=== PATIENT | female | born 1940 | race Caucasian/White ===

== ENCOUNTER 2017-01-03 14:40 | Inpatient (IN) | payer MEDICARE ==
[~2017-01-03] VITALS: Ht 160 cm; Wt 81.4 kg
[~2017-01-03 14:40] MED LIST: ASPIRIN81 MG PO; GLU10 PO; HUM7525 SQ; HUMALOG100 U/ML SC; LEVAQUIN250 MG PO; LEVOFLOXACIN500 M1 PO; MAC100 PO; METFORMIN HCL1000 MG PO; METFORMIN1000 M1 PO; METOPROLOL SUCC50 M1 PO; SIMVASTATIN40 M1 PO; TOPROL XL25 MG PO; ZESTRIL5 MG PO
[2017-01-03] MEDS ORDERED: VITAMIN B12 (14:58)
[2017-01-03] MEDS ORDERED: LOPRESSOR50 M1 PO (14:59)
[2017-01-03] MEDS ORDERED: NITROSTAT0.4 MG SL (15:00)
[2017-01-03 17:23] LABS: BASOPHIL % 0.3 % (0-2)
[2017-01-03 17:29] LABS: CALCIUM 8.9 mg/dL (8.5-10.1); CHLORIDE SERUM 107 mmol/L (98-107); CREATININE SERUM 1.1 mg/dL (0.6-1.0); GLUCOSE SERUM 181 mg/dL (74-106); PLATELET COUNT 119 x10^3mcL (130-400); POTASSIUM SERUM 4.4 mmol/L (3.5-5.1); SODIUM SERUM 140 mmol/L (136-145)
[2017-01-03 17:39] LABS: ALKALINE PHOSPHATASE 97 U/L (46-116); ALT/SGPT 18 U/L (14-59); AST/SGOT 21 U/L (15-37); BILIRUBIN TOTAL 0.46 mg/dL (0.20-1.00); CHOLESTEROL 141 mg/dL (<200); HDL CHOLESTEROL 51 mg/dL (40-60); PHOSPHOROUS 2.5 mg/dL (2.5-4.9); TOTAL PROTEIN, SERUM 7.9 g/dL (6.4-8.2); URIC ACID 4.4 mg/dL (2.6-6.0)
[2017-01-03 17:40] LABS: ALBUMIN 3.3 g/dL (3.4-5.0)
[2017-01-03 20:05] LABS: T3 TOTAL 0.99 ng/mL
[2017-01-03 20:11] LABS: FREE T4 1.07 ng/dL (0.76-1.46); FREE THYROXINE INDEX 3.2 ug/dL (1.4-4.5)
[2017-01-03 20:31] LABS: CHOLESTEROL/HDL RATIO 2.9
[2017-01-03 21:48] VITALS: BP 155/79
[2017-01-04 01:40] LABS: UA SPECIFIC GRAVITY 1.025 (1.005-1.035); microscopic required? YES; urine erythrocyte 1+ (NEGATIVE)
[2017-01-04 05:34] VITALS: BP 150/75
[2017-01-04 06:38] LABS: CALCIUM 8.8 mg/dL (8.5-10.1); CARBON DIOXIDE 26.9 mmol/L (21-32); CHLORIDE SERUM 104 mmol/L (98-107); CREATININE SERUM 1.3 mg/dL (0.6-1.0); GLUCOSE SERUM 296 mg/dL (74-106); MAGNESIUM 2.9 mg/dL (1.8-2.4); POTASSIUM SERUM 4.5 mmol/L (3.5-5.1); SODIUM SERUM 139 mmol/L (136-145)
[2017-01-04 06:49] LABS: BASOPHIL % 0.3 % (0-2); RED CELL DISTRIBUTION WIDTH 12.9 % (11.5-14.5)
[2017-01-04 07:02] LABS: PLATELET COUNT 108 x10^3mcL (130-400)
[2017-01-04 09:34] VITALS: BP 166/76
[2017-01-04 13:37] VITALS: BP 135/61
[2017-01-04 17:57] VITALS: BP 142/62
[2017-01-04 21:35] VITALS: BP 136/57
[2017-01-05 05:36] VITALS: BP 149/73
[2017-01-05 06:06] LABS: BASOPHIL % 0.3 % (0-2); RED CELL DISTRIBUTION WIDTH 13.1 % (11.5-14.5)
[2017-01-05 06:20] LABS: PLATELET COUNT 85 x10^3mcL (130-400)
[2017-01-05 06:48] LABS: CALCIUM 7.8 mg/dL (8.5-10.1); CARBON DIOXIDE 26.3 mmol/L (21-32); CHLORIDE SERUM 106 mmol/L (98-107); CREATININE SERUM 1.1 mg/dL (0.6-1.0); GLUCOSE SERUM 277 mg/dL (74-106); MAGNESIUM 1.4 mg/dL (1.8-2.4); PHOSPHOROUS 2.4 mg/dL (2.5-4.9); POTASSIUM SERUM 4.9 mmol/L (3.5-5.1); SODIUM SERUM 137 mmol/L (136-145)
[2017-01-05 07:00] LABS: IRON 35 ug/dL (50-170)
[2017-01-05 07:09] LABS: TOTAL IRON BINDING CAPACITY 200 ug/dL (250-450)
[2017-01-05 10:02] VITALS: BP 144/58
[2017-01-05 19:08] VITALS: BP 88/49
[2017-01-05 23:04] VITALS: BP 90/56
[2017-01-05 23:52] LABS: BASOPHIL % 0.1 % (0-2)
[2017-01-05 23:59] LABS: PLATELET COUNT 112 x10^3mcL (130-400)
[2017-01-06 03:02] VITALS: BP 118/52
[2017-01-06 05:44] LABS: BASOPHIL % 0.2 % (0-2)
[2017-01-06 05:47] LABS: PLATELET COUNT 86 x10^3mcL (130-400); RED CELL DISTRIBUTION WIDTH 16.5 % (11.5-14.5)
[2017-01-06 05:59] LABS: rbc morphology (normal/abnorm) ABNORMAL (NORMAL)
[2017-01-06 06:53] LABS: CALCIUM 6.4 mg/dL (8.5-10.1); CARBON DIOXIDE 22.2 mmol/L (21-32); CHLORIDE SERUM 111 mmol/L (98-107); CREATININE SERUM 1.1 mg/dL (0.6-1.0); GLUCOSE SERUM 309 mg/dL (74-106); MAGNESIUM 1.5 mg/dL (1.8-2.4); PHOSPHOROUS 3.9 mg/dL (2.5-4.9); POTASSIUM SERUM 4.8 mmol/L (3.5-5.1); SODIUM SERUM 139 mmol/L (136-145)
[2017-01-06 08:39] LABS: TRANSFERRIN 170 mg/dL (200-370)
[2017-01-06 16:03] LABS: BASOPHIL % 0.2 % (0-2)
[2017-01-06 16:13] LABS: PLATELET COUNT 93 x10^3mcL (130-400); RED CELL DISTRIBUTION WIDTH 16.4 % (11.5-14.5)
[2017-01-06 17:25] LABS: rbc morphology (normal/abnorm) ABNORMAL (NORMAL)
[2017-01-06 19:00] VITALS: BP 117/54
[2017-01-06 23:42] VITALS: BP 133/70
[2017-01-07] VITALS (7 sets, daily range): BP systolic 115–162; BP diastolic 62–77
[2017-01-07 05:13] LABS: CALCIUM 6.9 mg/dL (8.5-10.1); CARBON DIOXIDE 25.2 mmol/L (21-32); CHLORIDE SERUM 110 mmol/L (98-107); CREATININE SERUM 1.2 mg/dL (0.6-1.0); GLUCOSE SERUM 241 mg/dL (74-106); PHOSPHOROUS 2.6 mg/dL (2.5-4.9); SODIUM SERUM 139 mmol/L (136-145)
[2017-01-07 05:25] LABS: BASOPHIL % 0.2 % (0-2)
[2017-01-07 05:32] LABS: RED CELL DISTRIBUTION WIDTH 15.5 % (11.5-14.5)
[2017-01-07 05:33] LABS: PLATELET COUNT 78 x10^3mcL (130-400)
[2017-01-08 05:48] VITALS: BP 157/73
[2017-01-08 06:19] LABS: BASOPHIL % 0.1 % (0-2)
[2017-01-08 06:38] LABS: CALCIUM 7.7 mg/dL (8.5-10.1); CARBON DIOXIDE 25.6 mmol/L (21-32); CHLORIDE SERUM 109 mmol/L (98-107); GLUCOSE SERUM 168 mg/dL (74-106); POTASSIUM SERUM 4.5 mmol/L (3.5-5.1); SODIUM SERUM 140 mmol/L (136-145)
[2017-01-08 07:06] LABS: PLATELET COUNT 83 x10^3mcL (130-400); RED CELL DISTRIBUTION WIDTH 15.4 % (11.5-14.5)
[2017-01-08 09:09] VITALS: BP 136/51
[2017-01-08 17:28] VITALS: BP 147/77
[2017-01-08 21:56] VITALS: BP 157/61
[2017-01-09 05:49] VITALS: BP 137/63
[2017-01-09 06:36] LABS: BASOPHIL % 0.4 % (0-2)
[2017-01-09 06:41] LABS: PLATELET COUNT 96 x10^3mcL (130-400); RED CELL DISTRIBUTION WIDTH 15.2 % (11.5-14.5)
[2017-01-09 06:56] LABS: CALCIUM 7.9 mg/dL (8.5-10.1); CHLORIDE SERUM 105 mmol/L (98-107); CREATININE SERUM 0.9 mg/dL (0.6-1.0); GLUCOSE SERUM 109 mg/dL (74-106); MAGNESIUM 1.5 mg/dL (1.8-2.4); PHOSPHOROUS 2.8 mg/dL (2.5-4.9); SODIUM SERUM 138 mmol/L (136-145)
[2017-01-09] MEDS ORDERED: BG FS (08:45)
[2017-01-09 08:47] VITALS: BP 142/66
[2017-01-09] MEDS ORDERED: ROC1I IM (10:23)
[2017-01-09 11:53] VITALS: BP 133/75
[2017-01-09 13:31] VITALS: BP 142/66
[2017-01-09] MEDS ORDERED: FERL PO (16:01)
[2017-01-09] MEDS ORDERED: LEVEMIR100 U/M1 SQ (16:01)
[2017-01-09] MEDS ORDERED: THERA TABS1 TAB PO (16:01)
[2017-01-09] MEDS ORDERED: HUMULIN R100 U/1 M1 SC (16:02)
[2017-01-09] MEDS ORDERED: NIT0.4 SL (16:02)
[2017-01-09] MEDS ORDERED: COL100 PO (16:02)
[2017-01-09] MEDS ORDERED: LEADER NATURA500 MCG PO (16:02)
[2017-01-09] MEDS ORDERED: ZOFI IV (16:05)
[2017-01-09] MEDS ORDERED: TYL325 PO (16:06)
[2017-01-09] MEDS ORDERED: PRI20 PO (16:06)
[2017-01-09] MEDS ORDERED: LAC PO (16:33)
[2017-01-09] MEDS ORDERED: SIMETHICONE80 MG CH (16:33)
[2017-01-09 16:56] VITALS: BP 162/78
[2017-01-09] MEDS ORDERED: NPHOS PO (17:53)
== END 2017-01-09 18:51 | DRG 480 ==
LOC: ED 14:40 → DU 18:40 → IC 01-05 17:36 → DU 01-07 15:20 → MU 01-08 06:44
PROVIDERS: Emergency Medicine; Family Medicine Sports Medicine; Neuromusculoskeletal Medicine, Sports Medicine; ADMIT Family Medicine
PROC: 0JQR3ZZ Repair Left Foot Subcutaneous Tissue and Fascia, Percutaneous Approach (ICD-10-PCS; 2017-01-05)
PROC: 0QS704Z Reposition Left Upper Femur with Internal Fixation Device, Open Approach (ICD-10-PCS; principal; 2017-01-05 13:30)
PROC: 05HN33Z Insertion of Infusion Device into Left Internal Jugular Vein, Percutaneous Approach (ICD-10-PCS; 2017-01-06)
PROC: B544ZZA Ultrasonography of Left Jugular Veins, Guidance (ICD-10-PCS; 2017-01-06)
DX: M97.02XA Periprosthetic fracture around internal prosthetic left hip joint, initial encounter (principal); N17.0 Acute kidney failure with tubular necrosis; E44.1 Mild protein-calorie malnutrition; D68.69 Other thrombophilia; E11.51 Type 2 diabetes mellitus with diabetic peripheral angiopathy without gangrene; E11.65 Type 2 diabetes mellitus with hyperglycemia; E11.42 Type 2 diabetes mellitus with diabetic polyneuropathy; S91.115A Laceration without foreign body of left lesser toe(s) without damage to nail, initial encounter; I10 Essential (primary) hypertension; E83.42 Hypomagnesemia; E02 Subclinical iodine-deficiency hypothyroidism; D64.9 Anemia, unspecified; Z96.642 Presence of left artificial hip joint; I25.2 Old myocardial infarction; Z68.31 Body mass index [BMI] 31.0-31.9, adult; Z79.4 Long term (current) use of insulin; Z95.1 Presence of aortocoronary bypass graft; W18.39XA Other fall on same level, initial encounter; Z79.84 Long term (current) use of oral hypoglycemic drugs; Z91.81 History of falling; Y93.G3 Activity, cooking and baking; Y92.010 Kitchen of single-family (private) house as the place of occurrence of the external cause; I25.10 Atherosclerotic heart disease of native coronary artery without angina pectoris
CPT/HCPCS: 36556; 76001; 82962; 83880; 84439; 94150; 97110-GP; 97116-GP; 97530-GP; J0690; J0696; J1170; J1642; J1815; J1885; J1940; J2060; J2270; J2405; J2704; J3010; J3475; J3490; J7030; J7040; J7050; J7120; P9016; P9035; Q0092; Q0163

== ENCOUNTER 2019-02-12 18:33 | Inpatient (IN) | payer MEDICARE ==
[~2019-02-12] VITALS: Ht 167.6 cm; Wt 79.8 kg
[~2019-02-12 18:33] MED LIST changes: +BG FS; +COL100 PO; +FERL PO; +HUMULIN R100 U/1 M1 SC; +LAC PO; +LEADER NATURA500 MCG PO; +LEVEMIR100 U/M1 SQ; +LOPRESSOR50 M1 PO; +NIT0.4 SL; +NITROSTAT0.4 MG SL; +NPHOS PO; +PRI20 PO; +ROC1I IM; +SIMETHICONE80 MG CH; +THERA TABS1 TAB PO; +TYL325 PO; +VITAMIN B12; +ZOFI IV
[2019-02-12 18:43] VITALS: Ht 167.6 cm; Wt 79.8 kg
--- NOTE | 2019-02-12 18:45 | NUR ---
PT SENT TO WAIT IN LOBBY FOR AVAILABLE BED. ALERT AND ORIENTED WITH NO DISTRESS
--- NOTE | 2019-02-12 20:31 | NUR ---
NO ANSWER FROM LOBBY.
--- NOTE | 2019-02-12 21:35 | NUR ---
PT CAME TO ED CO FALL ABOUT 3 HOURS AGO. PT STS SHE WAS GETTING UP FROM HER CHAIR WHEN SHE SLIPPED. PT STS SHE FELL ON HER RIGHT SIDE. PT IS CO RIGHT WRIST AND RIGHT HIP PAIN. ECCYMOSIS NOTED TO THE RIGHT WRIST. NO SWELLING OR DISCOLORATION TO THE RIGHT HIP. NO S/S OF DISTRESS. RESP E/U. SON AT BEDSIDE. AWAITING MSE. PT IN POSITION OF COMFORT. WILL CONTINUE TO MONITOR.
--- NOTE | 2019-02-12 21:43 | NUR ---
PT TAKEN TO XRAY
--- NOTE | 2019-02-12 22:27 | NUR ---
PT MEDICATED PER ORDER. PT VERBALIZED UNDERSTANDING OF MEDICATION TEACHING. SEE EMAR FOR DETAILS.
[2019-02-12 23:45] LABS: CHLORIDE SERUM 107 mmol/L (98-107); CREATININE SERUM 1.5 mg/dL (0.6-1.0); GLUCOSE SERUM 231 mg/dL (74-106); POTASSIUM SERUM 4.9 mmol/L (3.5-5.1); SODIUM SERUM 140 mmol/L (136-145)
[2019-02-12 23:48] LABS: BASOPHIL % 0.3 % (0-2); PLATELET COUNT 123 x10^3mcL (130-400); RED CELL DISTRIBUTION WIDTH 12.9 % (11.5-14.5)
[2019-02-12 23:52] LABS: ALBUMIN 3.2 g/dL (3.4-5.0); ALKALINE PHOSPHATASE 103 U/L (46-116); ALT/SGPT 17 U/L (14-59); AST/SGOT 21 U/L (15-37); BILIRUBIN TOTAL 0.6 mg/dL (0.20-1.00); TOTAL PROTEIN, SERUM 7.5 g/dL (6.4-8.2)
--- NOTE | 2019-02-13 00:24 | NUR ---
REPORT CALL TO CHAY RO TO ASSUME CARE OF PT
--- NOTE | 2019-02-13 00:43 | NUR ---
PT TAKEN TO MED SURG FLOOR ACCOMPANIED BY EMT. NO S/S OF DISTRESS. RESP E/U. IV SITE PATENT, PT DENIES PAIN OR DISCOMFORT TO SITE.
[2019-02-13 01:24] VITALS: BP 150/59
--- NOTE | 2019-02-13 01:45 | NUR ---
Pt. received from nurse via gopal from ER. Pt. c/o of body aches and was d(x) w/ R hip & R hand f(x). Pt. is a/o x3, able to make needs known, able to follow commands. Pt. lung sounds CTA and has no c/o of SOB. Pt. m/s pt. w/ no c/o of chest pain at this time. Pt. bowel sounds active w/ LBM formed and yesterday as per pt. Pt. has no c/o of burning / pain when urinating, but is incontinent of bladder at times. Pt. noted to have urinated when in the room and just said that she's going pee at that time. Pt. family at bedside upon arrival, and has no further questions at this time. Pt. c/o of pain and spasms, will medicate pt. as ordered on emar. Pt. safety in check w/ call light placed within reach, educated pt. on when and how to use call light system, bed set at lowest position, will continue to monitor.
--- NOTE | 2019-02-13 02:15 | NUR ---
Pt. c/o of 10/10 throbbing pain in leg, will medicate with ordered dose of morphine and continue to monitor.
--- NOTE | 2019-02-13 05:12 | NUR ---
Pt. currently resting in bed, asleep, easily arousable w/ verbal stimuli. Pt. has no c/o of SOB, chest pain, discomfort, or uncomfortable pain at this time. Pt. has no s/o distress also. Pt. safety in check with call light placed within reach, pt. educated on when to use and how to use call light system, bed set at lowest position, will continue to monitor pt. until the end of shift and endorse to the next shift RN.
[2019-02-13 05:34] VITALS: BP 109/53
[2019-02-13 06:24] LABS: BASOPHIL % 0.3 % (0-2); RED CELL DISTRIBUTION WIDTH 12.8 % (11.5-14.5)
[2019-02-13 06:34] LABS: PLATELET COUNT 107 x10^3mcL (130-400)
[2019-02-13 06:53] LABS: ALKALINE PHOSPHATASE 93 U/L (46-116); ALT/SGPT 18 U/L (14-59); AST/SGOT 25 U/L (15-37); BILIRUBIN TOTAL 0.9 mg/dL (0.20-1.00); CALCIUM 7.9 mg/dL (8.5-10.1); CARBON DIOXIDE 25.6 mmol/L (21-32); CHLORIDE SERUM 105 mmol/L (98-107); CREATININE SERUM 1.4 mg/dL (0.6-1.0); GLUCOSE SERUM 307 mg/dL (74-106); MAGNESIUM 1.5 mg/dL (1.8-2.4); POTASSIUM SERUM 5.3 mmol/L (3.5-5.1); SODIUM SERUM 136 mmol/L (136-145); TOTAL PROTEIN, SERUM 6.9 g/dL (6.4-8.2)
[2019-02-13 07:23] LABS: ALBUMIN 2.9 g/dL (3.4-5.0)
--- NOTE | 2019-02-13 07:53 | NUR ---
RECEIVED PATIENT FROM CHAY RODRIGUEZ. PATIENT IN BED AT THIS TIME, NO COMPLAINTS OF PAIN POST PRN NORCO PO ADMINISTRATION. REVIEWED PLAN OF CARE WITH PATIENT TODAY INCLUDING PAIN CONTROL, AWARE OF NPO STATUS AND POSSIBLE SURGERY TODAY ONCE DR MAYORGA COMES TO SPEAK WITH PATIENT. PATIENT AWARE. CALL LIGHT IN REACH, REMINDED PATIENT TO USE CALL LIGHT FOR ASSISTANCE.
[2019-02-13 09:48] VITALS: BP 165/64
--- NOTE | 2019-02-13 09:54 | NUR ---
DR NICOLE AND DR MAYORGA IN TO SEE PATIENT. DR MAYORGA STATES HE WILL DO SURGERY FOR TOMORROW, NPO AFTER MIDNIGHT, ECHO AND CARDIAC CONSULT FOR PATIENT. INFORMED DR NICOLE AND MADE AWARE. DR NICOLE ORDERED CONSULT FROM DR DOUGLAS. WILL NOTIFY CHARGE NURSE KANG. PATIENT IN BED, NO PAIN AT THIS TIME. WILL SPEAK WITH PATIENT DAUGHTER ABOUT PLAN OF CARE WHEN SHE ARRIVES.
--- NOTE | 2019-02-13 12:41 | NUR ---
[facility] CONSULTANTCHAY ROBERTO UP TO NURSES STATION, STATES PATIENT WILL HAVE SURGERY TOMORROW AT 0730. INFORMED PATIENT AND PATIENT DAUGHTER AT BEDSIDE. ALL QUESTIONS ADDRESSED AT THIS TIME. CALL LIGHT IN REACH
--- NOTE | 2019-02-13 15:46 | NUR ---
DR AUGUST AND DR DOUGLAS IN TO SPEAK WITH PATIENT AND FAMILY. DR AUGUST STATED THAT RENAL FUNCTION IS NORMAL AND STATED THAT PATIENT NEEDS TO AVOID NEPHROTOXIC DRUGS INCLUDING ALEVE. PATIENT AND DAUGHTER VERBALIZE UNDERSTANDING. DR DOUGLAS IN TO EVAL PATIENT AND SPOKE WITH PATIENT AND DAUGHTER, EKG EVALUATED AND ECHO TO BE EVALUATED. PATIENT HAS MODERATE COMPLAINTS OF R HIP PAIN AT THIS TIME. CALL LIGHT IN REACH, FAMILY AT BEDSIDE.
[2019-02-13 18:40] VITALS: BP 145/58
--- NOTE | 2019-02-13 18:54 | NUR ---
PATIENT IN BED AT THIS TIME. NO COMPLAINTS OF PAIN. FAMILY AT BEDSIDE. ALL QUESTIONS ADDRESSED ABOUT DR DOUGLAS CONSULT AND IS STILL SCHEDULED FOR SURGERY TOMORROW AM. WILL ENDORSE TO ONCOMING NURSE.
--- NOTE | 2019-02-13 19:25 | NUR ---
RECEIVED REPORT FROM DAY SHIFT NURSE, BALJEET CARTWRIGHT. PT IS AAOX4. SPEECH IS CLEAR. DENIES NG. FAMILY AT BEDSIDE. MED SURG PT. DENIES CP. PULSES ARE PALPABLE. NO EDEMA NOTED. BREATHING IS EVEN AND UNLABORED ON RA. LUNG SOUNDS CTA. NO SIGNS OF RESP DISTRESS. ABD IS SOFT AND NONDISTENDED. BS ACTIVE. INCONTINENT. WILL PROVIDE PERICARE NEEDED. GENERALIZED WEAKNESS, RIGHT SIDE WEAKER. USES A WALKER AT HOME. RIGHT ARM LIMITED ROM. SKIN INTACT. ECCHYMOSIS NOTED TO RICHAR BUTTOCKS, L SIDE OF BACK, AND R WRIST. DENIES ANY PAIN AT THIS TIME. IV TO LAC DRY AND INTACT. NO ERYTHEMA NOTED. BED IN LOWEST POSITION. CALL LIGHT WITHIN REACH. WILL CONTINUE TO MONITOR.
[2019-02-13 20:32] VITALS: BP 122/59
--- NOTE | 2019-02-13 21:50 | NUR ---
ROUTINE MEDICATIONS GIVEN AND TOLERATED WELL. NO ACUTE DISTRESS NOTED. TEMP WAS NOTED TO BE AT 101.1 ORALLY. TYLENOL GIVEN PRN PER MAY ORDER. COOLING MEASURES APPLIED. WILL REASSESS AND RECHECK EFFECTIVENESS. BED IN LOWEST POSITION. CALL LIGHT WITHIN REACH. WILL CONTINUE TO MONITOR.
--- NOTE | 2019-02-13 23:10 | NUR ---
PT IS RESTING COMFORTABLY WITH EYES CLOSED, BUT EASILY AROUSABLE WHEN SPOKEN TO. BREATHING IS EVEN AND UNLABORED ON RA. NO SIGNS OF RESP. DISTRESS. RECHECKED TEMP 100.1 ORALLY. COOLING MEASURES STILL APPLIED. BED IN LOWEST POSITION. CALL LIGHT WITHIN REACH. WILL CONTINUE TO MONITOR.
--- NOTE | 2019-02-14 01:18 | NUR ---
PT IS RESTING COMFORTABLY WITH EYES CLOSED, BUT EASILY AROUSABLE WHEN SPOKEN TO. BREATHING IS EVEN AND UNLABORED ON RA. NO SIGNS OF RESP. DISTRESS. BED IN LOWEST POSITION. CALL LIGHT WITHIN REACH. WILL CONTINUE TO MONITOR.
[2019-02-14 05:10] VITALS: BP 150/71
--- NOTE | 2019-02-14 05:18 | NUR ---
PT SLEPT IN LONG INTERVALS THROUGHOUT THE NIGHT AND COMPLIED WITH NURSING CARE WITH NO ACUTE EVENTS OCCURRING OVER NIGHT. COMFORT AND SAFETY MEASURES MAINTAINED. ALL NEEDS ASSESSED AND ATTENDED TO. BED IN LOWEST POSITION. CALL LIGHT WITHIN REACH. WILL CONTINUE TO MONITOR AND ENDORSE CARE TO DAY SHIFT NURSE.
[2019-02-14 06:44] LABS: ALKALINE PHOSPHATASE 91 U/L (46-116); ALT/SGPT 18 U/L (14-59); AST/SGOT 22 U/L (15-37); CALCIUM 7.7 mg/dL (8.5-10.1); CARBON DIOXIDE 26.2 mmol/L (21-32); CHLORIDE SERUM 105 mmol/L (98-107); CREATININE SERUM 1.4 mg/dL (0.6-1.0); GLUCOSE SERUM 289 mg/dL (74-106); MAGNESIUM 2.2 mg/dL (1.8-2.4); POTASSIUM SERUM 4.4 mmol/L (3.5-5.1); SODIUM SERUM 137 mmol/L (136-145); TOTAL PROTEIN, SERUM 6.5 g/dL (6.4-8.2)
[2019-02-14 06:46] LABS: BASOPHIL % 0.5 % (0-2); RED CELL DISTRIBUTION WIDTH 12.8 % (11.5-14.5)
--- NOTE | 2019-02-14 06:51 | NUR ---
SALINE LOCK PT, PT OFF THE UNIT VIA BED TO OR WITHOUT DISTRESS.
[2019-02-14 06:59] LABS: ALBUMIN 2.4 g/dL (3.4-5.0)
[2019-02-14 07:02] LABS: PLATELET COUNT 104 x10^3mcL (130-400)
--- NOTE | 2019-02-14 08:04 | NUR ---
RECEIVED PATIENT FROM CHAY ROJO. PATIENT SEEN TAKEN DOWN TO OR FOR SURGERY. WILL WAIT FOR PATIENT TO RETURN TO FLOOR.
--- NOTE | 2019-02-14 09:03 | NUR ---
DR NICOLE IN TO SEE PATIENT, INFORMED DR NICOLE THAT PATIENT IS DOWN IN SURGERY SINCE 729 THIS AM.
--- NOTE | 2019-02-14 10:16 | NUR ---
PATIENT RETURNED TO FLOOR W CHAY SWENSON. PATIENT STATES NAUSEA, WILL ADMINISTER PRN ZOFRAN IVP. FAMILY AT BEDSIDE.
[2019-02-14 10:28] VITALS: BP 154/73
--- NOTE | 2019-02-14 12:20 | NUR ---
DR DOUGLAS IN SPEAK WITH PATIENT AND FAMILY. STATES HE WILL LIKE METOPROLOL TO BE D/C, AND THAT PATIENT NEEDS TO FU WITH CARDIOVASCULAR SPECIALIST. ALL QUESTIONS ADDRESSED AT THIS TIME.
[2019-02-14 13:16] VITALS: BP 147/52
--- NOTE | 2019-02-14 16:14 | NUR ---
PATIENT IN BED. STATES THAT SHE IS FEELING MUSCLE SPASMS IN HER R LEG. PRN NORCO ADMINISTERED. WILL CONTINUE TO MONITOR. US TECH ALSO IN FOR US RENAL ORDERED BY DR AUGUST, PATIENT REFUSED AT THIS TIME STATING HER R LEG MUSCLE SPASMS. CALL LIGHT IN REACH, FAMILY AT BEDSIDE.
[2019-02-14 17:09] VITALS: BP 115/47
--- NOTE | 2019-02-14 18:51 | NUR ---
PATIENT IN BED AT THIS TIME. NO COMPLAINTS OF PAIN. PATIENT REFUSING TO EAT DINNER TRAY SHE DOES NOT LIKE THE FOOD. NO OTHER COMPLAINTS AT THIS TIME. WILL ENDORSE TO ONCOMING NURSE. CALL LIGHT IN REACH.
--- NOTE | 2019-02-14 19:50 | NUR ---
RECEIVED REPORT FROM DAY SHIFT NURSE, BALJEET CARTWRIGHT. PT IS AAOX4. SPEECH IS CLEAR. DENIES NG. MED-SURG PT. DENIES CP. PULSES ARE PALPABLE. NO EDEMA NOTED. RIGHT ARM ELEVATED ON PILLOW. BREATHING IS EVEN AND UNLABORED. LUNG SOUNDS CTA. NO SIGNS OF RESP. DISTRESS. ABD IS ROUND AND NONDISTENDED. DENIES N/V. INCONTINENT OF URINE AND BM. WILL PROVIDE PERICARE NEEDED AND REPOSITION Q2H. GENERALIZED WEAKNESS, RIGHT SIDED WEAKNESS S/P FALL. BASELINE IS WALKER USE AT HOME. ECCHYMOSIS NOTED TO R WRIST, RICHAR BUTTOCKS, AND L LOWER BACK. SKIN INTACT. DENIES PAIN AT THIS TIME. IV TO LH DRY AND INTACT. NO ERYTHEMA NOTED. BED IN LOWEST POSITION. CALL LIGHT WITHIN REACH. ENCOURAGED PT TO USE INCENTIVE SPIROMETER. WILL CONTINUE TO MONITOR.
[2019-02-14 21:19] VITALS: BP 151/59
--- NOTE | 2019-02-14 22:18 | NUR ---
ROUTINE MEDICATIONS WERE ADMINISTERED AND TOLERATED WELL. NO ACUTE DISTRESS NOTED. BREATHING IS EVEN AND UNLABORED. NO SIGNS OF RESP. DISTRESS. PT C/O 8 SHARP PAIN ON SURGICAL SITE. MEDICATED WITH PRN NORCO PER MAY ORDER. REPOSITIONED AND PROVIDED PERICARE. ENCOURAGED PT TO USE INCENTIVE SPIROMETER. BED IN LOWEST POSITION. CALL LIGHT WITHIN REACH. WILL CONTINUE TO MONITOR.
--- NOTE | 2019-02-15 00:36 | NUR ---
PT IS RESTING COMFORTABLY IN BED, BUT EASILY AROUSABLE WHEN SPOKEN TO. BREATHING IS EVEN AND UNLABORED ON RA. NO SIGNS OF RESP. DISTRESS. BED IN LOWEST POSITION. CALL LIGHT WITHIN REACH. WILL CONTINUE TO MONITOR.
--- NOTE | 2019-02-15 05:04 | NUR ---
PT SLEPT IN INTERVALS THROUGHOUT THE NIGHT AND COMPLIED WITH NURSING CARE WITH NO ACUTE EVENTS OCCURRING DURING THE SHIFT. COMFORT AND SAFETY MEASURES MAINTAINED. ALL NEEDS ASSESSED AND ATTENDED TO. BED IN LOWEST POSITION. CALL LIGHT WITHIN REACH. WILL CONTINUE TO MONITOR AND ENDORSE CARE TO DAY SHIFT NURSE.
[2019-02-15 05:41] VITALS: BP 163/75
[2019-02-15 06:31] LABS: ALKALINE PHOSPHATASE 100 U/L (46-116); ALT/SGPT 16 U/L (14-59); AST/SGOT 15 U/L (15-37); BASOPHIL % 0.2 % (0-2); BILIRUBIN TOTAL 0.49 mg/dL (0.20-1.00); CALCIUM 7.6 mg/dL (8.5-10.1); CARBON DIOXIDE 26.7 mmol/L (21-32); CHLORIDE SERUM 105 mmol/L (98-107); CREATININE SERUM 1.2 mg/dL (0.6-1.0); GLUCOSE SERUM 233 mg/dL (74-106); MAGNESIUM 1.8 mg/dL (1.8-2.4); RED CELL DISTRIBUTION WIDTH 13.1 % (11.5-14.5); SODIUM SERUM 136 mmol/L (136-145); TOTAL PROTEIN, SERUM 6.2 g/dL (6.4-8.2)
[2019-02-15 06:45] LABS: PLATELET COUNT 93 x10^3mcL (130-400)
[2019-02-15 06:46] LABS: ALBUMIN 2.3 g/dL (3.4-5.0)
--- NOTE | 2019-02-15 07:00 | NUR ---
RECEIVED REPORT FROM SENIOR DATA QUALITY ANALYST NURSE PATIENT LYING IN BED AWAKE AND ALERT. PATIENT DENIES ANY PAIN AT THIS TIME. PTAIENT A&O X4, RIGHT SURGICAL DRESSING DRY AND INTACT, RIGHT CAST IN PLACE RADIAL PULSES STRONG BILAT AND CAP REFILL <3SEC. ASSESSMENT COMPLETE AND DOCUMENTED. IV INFUSING IN LEFT HAND PATENT AND INTACT NO REDNESS OR EDEMA NOTED. ALL QUESTIONS AND CONCERNS ADDRESSED AT THIS TIME. BED IN LOW POSITION CALL LIGHT WITHIN REACH. WILL CONTINUE TO MONITOR.
[2019-02-15 08:13] VITALS: BP 151/60
--- NOTE | 2019-02-15 08:25 | NUR ---
PATIENT C/O PAIN ON R HIP. ADMINISTERED NORCO PO PER MAY FOR SEVERE PAIN. PATIENT TOLERATED WELL NO ADVERSE REACTIONS NOTED. REPOSITIONED PATIENT FOR COMFORT AND DIMMED THE LIGHTS . ALL NEEDS ATTENDED TO AT THIS TIME. WILL REASSESS PAIN AND CONTINUE TO MONITOR. BED IN LOW POSITION CALL LIGHT WITHIN REACH.
--- NOTE | 2019-02-15 10:01 | NUR ---
PATIENT UP IN CHAIR WITH PT. PATIENT C/O PAIN IN ABD BUT WAS RELIEVED BY PASSING GAS. ENCOURAGED PATIENT TO MOVE MUSCH TOLERATED TO HELP PASS GAS. PATIENT STATED " IT REALLY HURTS" REPOSITIONED PATIENT BACK IN BED. PATIENT DENIES ANY PAIN AT THIS TIME. ALL NEEDS ATTENDED TO. SAFETY PRECAUTIONS IN PLACE. WILL CONTINUE TO MONITOR.
--- NOTE | 2019-02-15 11:55 | NUR ---
PATIENT BEDSIDE GLUCOSE OF 276 9U OF REG INSULIN GIVEN PER SLIDING SCALE IN ABD PER PATIENT REQUEST. PATIENT TOLERATED WELL, NO ADVERSE REACTIONS NOTED. PATIENT DENIES ANY PAIN AT THIS TIME. ALL NEEDS ATTENDED TO AT THIS TIME. BED IN LOW POSITION CALL LIGHT WITHIN REACH. WILL CONTINUE TO MONITOR.
--- NOTE | 2019-02-15 13:40 | NUR ---
REPOSITIONED PATIENT FOR COMFORT PATIENT DENIES ANY PAIN AT THIS TIME. ALL NEEDS ATTENDED TO. BED IN LOW POSITION CALL LIGHT WITHIN REACH. WILL CONTINUE TO MONITOR.
--- NOTE | 2019-02-15 14:57 | NUR ---
SPOKE WITH DR NICOLE CONCERNING PATIENTS NEED FOR D5 OER DR NICOLE IF PATIENT IS EATING OK TO D/C IV FLUIDS. WILL MONITOR INTAKE AND PROCEED WITH ORDER. PATIENT ATE BREAKFAST WELL BUT NOT MUCH LUNCH. PATIENT STATED "I WILL EAT MY DINNER" IF DINNER IS TOLERATED WELL. I WILL D/C IV MED. PATIENTS HAS DM AND BLOOD SUGAR IS HIGH FOR HER.
[2019-02-15 16:35] VITALS: BP 176/74
--- NOTE | 2019-02-15 18:22 | NUR ---
PER DR COREY CORDON TO D/C FLUIDS READ BACK AND CONFIRMED ORDER WILL PROCEED WITH DC. PATIENT SITTING UP IN BED EATING DINNER AND TALKING WITH SON. PATIENT DENIES ANY PAIN AT THIS TIME. R HIP DRESSING DRY AND INTACT NO REDNESS OR EDEMA NOTED. IV PATENT AND INTACT ON LFA NO REDNESS OR EDEMA. ALL NEEDS ATTENDED TO AT THIS TIME. BED IN LOW POSITION CALL LIGHT WITHIN REACH. WILL ENDORSE CARE TO HEALTH INFORMATION CODER NURSE.
--- NOTE | 2019-02-15 19:30 | NUR ---
Pt. received from day shift, curretnly resting in bed. Pt. is a/o x3, able to make needs known, able to follow commands. pt. has no c/o of pain, no c/o of SOB, no s/o distress at this time. Will anticipate the needs of pt. this shift and continue to monitor.
[2019-02-15 20:49] VITALS: BP 118/64
[2019-02-16 05:35] VITALS: BP 137/65
--- NOTE | 2019-02-16 07:00 | NUR ---
RECEIVED REPORT FROM OFFICE EQUIPMENT TECHNICIAN NURSE PATIENT LYING IN BED ASLEEP BUT AROUSABLE. IV ON L HAND PATENT AND INTACT. PATIENT DENIES ANY PAIN AT THIS TIME. SURGICAL SITE CLEAN DRY AND INTACT. NO S/S OF RESPIRATORY DISTRESS NOTED. ALL QUESTIONS AND CONCERNS ADDRESSED AT THIS TIME. BED IN LOW POISTION CALL LIGHT WITHIN REACH. WILL CONTINUE TO MONITOR.
[2019-02-16 07:09] LABS: BASOPHIL % 0.7 % (0-2); RED CELL DISTRIBUTION WIDTH 12.5 % (11.5-14.5)
[2019-02-16 07:16] LABS: PLATELET COUNT 108 x10^3mcL (130-400)
--- NOTE | 2019-02-16 07:18 | NUR ---
Pt. currently resting in bed, changed pt. right before shift change. Pt. has had one c/o of pain, but otherwise pt. stable and sleep for most of the night. will continue to monitor pt. and endorse to next shift.
[2019-02-16 07:48] LABS: ALKALINE PHOSPHATASE 104 U/L (46-116); ALT/SGPT 13 U/L (14-59); AST/SGOT 16 U/L (15-37); BILIRUBIN TOTAL 0.68 mg/dL (0.20-1.00); CALCIUM 8.3 mg/dL (8.5-10.1); CARBON DIOXIDE 27.5 mmol/L (21-32); CHLORIDE SERUM 102 mmol/L (98-107); CREATININE SERUM 1.1 mg/dL (0.6-1.0); GLUCOSE SERUM 139 mg/dL (74-106); MAGNESIUM 1.6 mg/dL (1.8-2.4); POTASSIUM SERUM 4.1 mmol/L (3.5-5.1); SODIUM SERUM 136 mmol/L (136-145); TOTAL PROTEIN, SERUM 6.7 g/dL (6.4-8.2)
[2019-02-16 07:49] LABS: ALBUMIN 2.4 g/dL (3.4-5.0)
--- NOTE | 2019-02-16 08:52 | NUR ---
PATIENT C/O PAIN IN R HIP ADMINISTERED NORCO PO PER MAY FOR MODERATE PAIN. PATIENT TOLERATED WELL NO ADVERSE REACTIONS NOTED. REPOSITIONED PATIENT FOR COMFORT AND DIMMED LIGHTS. ALL NEEDS ATTENDED TO AT THIS TIME. BED IN LOW POSITION CALL LIGHT WITHIN REACH. WILL REASSESS PAIN AND CONTINUE TO MONITOR.
[2019-02-16 09:36] VITALS: BP 111/54
--- NOTE | 2019-02-16 12:14 | NUR ---
ULTRA SOUND AT BEDSIDE PATIENT DENIES ANY PAIN AT THIS TIME. BLOOD SUGAR CHECK 245 COVERED WITH 6U REG INSULIN, PT TOLERATED WELL. ALL NEEDS ATTENDED TO AT THIS TIME. BED IN LOW POSITION CALL LIGHT WITHIN REACH. WILL CONTINUE TO MONITOR.
--- NOTE | 2019-02-16 14:19 | NUR ---
PATIENT C/O HIP PAIN 7/10 EXACERBATED BY MOVEMENT ADMINISTERED NORCO PO FOR MODERATE PAIN. REPOSITIONED PATIENT AND DIMMED LIGHTS FOR COMFORT. ALL NEEDS ATTENDED TO AT THIS TIME. BED IN LOWEST POSITION CALL LIGHT WITHIN REACH. WILL CONTINUE TO MONITOR.
--- NOTE | 2019-02-16 14:22 | NUR ---
NOTED [facility] TRANSFER ORDER. CALLED [facility] AND COMFIRMED BED AVAILABILITY FOR PLAN TRANSFER TODAY. FACILITY ABLE TO TAKE PT AT THIS TIME. CALLED [facility] TO ACTIVATE WILL CALL NEUROLOGY PHYSICIAN ASSISTANT SCHEDULED NEXT AVAILABLE TIME 1929. ATTENDING NURSE MADE AWARE.
[2019-02-16 15:06] VITALS: BP 111/54
--- NOTE | 2019-02-16 15:27 | NUR ---
GAVE REPORT TO EVELYN CARTWRIGHT AT [facility]. PATIENT SET FOR CHAIR SPRING ASSEMBLER AT 1700.
[2019-02-16 15:28] VITALS: BP 111/54
[2019-02-16 16:45] VITALS: BP 152/78
--- NOTE | 2019-02-16 16:58 | NUR ---
Discharge teaching given to patient patient verbalized understanding. Report given to S crew taking her to [facility] in [place]. Daughter notified of transfer. IV d/c'd catheterintact dressing applied. All belongings taken with patient. All questions and concerns addressed at this time. Patient stable alert and oriented for transfer.
== END 2019-02-16 17:10 | DRG 482 ==
LOC: ED 18:33 → MU 23:41
PROVIDERS: Emergency Medicine; Neuromusculoskeletal Medicine, Sports Medicine; ADMIT Internal Medicine Pulmonary Disease
PROC: 2W38X2Z Immobilization of Right Upper Extremity using Cast (ICD-10-PCS; 2019-02-14)
PROC: 0QS604Z Reposition Right Upper Femur with Internal Fixation Device, Open Approach (ICD-10-PCS; principal; 2019-02-14 07:30)
DX: S72.011A Unspecified intracapsular fracture of right femur, initial encounter for closed fracture (principal); S62.114A Nondisplaced fracture of triquetrum [cuneiform] bone, right wrist, initial encounter for closed fracture; I25.10 Atherosclerotic heart disease of native coronary artery without angina pectoris; I12.9 Hypertensive chronic kidney disease with stage 1 through stage 4 chronic kidney disease, or unspecified chronic kidney disease; E11.22 Type 2 diabetes mellitus with diabetic chronic kidney disease; N18.9 Chronic kidney disease, unspecified; E87.5 Hyperkalemia; E83.42 Hypomagnesemia; Z96.642 Presence of left artificial hip joint; W01.0XXA Fall on same level from slipping, tripping and stumbling without subsequent striking against object, initial encounter; Y93.89 Activity, other specified; Y92.098 Other place in other non-institutional residence as the place of occurrence of the external cause; Z95.1 Presence of aortocoronary bypass graft; W07.XXXA Fall from chair, initial encounter; Y92.018 Other place in single-family (private) house as the place of occurrence of the external cause; Z79.84 Long term (current) use of oral hypoglycemic drugs
CPT/HCPCS: 82962; 97110-GP; 97116-GP; 97530-GP; A4570; C1713; G0378; J0690; J1644; J1815; J2270; J2405; J2704; J3010; J3475; J3490; J7030; J7042; J7120; Q0092